=== PATIENT | female | born 2000 | race Two or more races ===

== ENCOUNTER 2025-03-24 20:25 | Emergency (ER) | payer OTHER, SELFPAY ==
[~2025-03-24] VITALS: Ht 160 cm; Wt 82.0 kg
--- NOTE | 2025-03-24 20:36 | ECG ---
[facility] Test Date: 2025-03-24 Test Time: 20:34:32 Pat Name: ARIELLE OREILLY Department: ED Room: Gender: F Gas Dispenser: TRINH : 2000 Requested By: YOGESH ALVAREZ Order Number: [id number] Reading MD: Joshua Jain Measurements Intervals [place] Rate: 82 P: 41 IN: 120 QRS: 64 QRSD: 100 T: 28 QT: 369 QTc: 431 Interpretive Statements Sinus rhythm Abnormal T, consider ischemia, anterior leads Electronically Signed On 03-24-2025 22:37:48 PDT by Joshua Jain Please click the below link to view image of tracing.
[2025-03-24 21:17] LABS: Hematocrit 38.3 % (36.0-46.0); Hemoglobin 13.6 g/dL (12.2-16.2); Mean Corpuscular Hemoglobin 30.3 pg (28.0-32.0); Mean Corpuscular Volume 85.1 fL (80.0-100.0); Nucleated Red Blood Cells % 0.1 %
[2025-03-24 21:24] LABS: Alanine Aminotransferase 20 U/L (7-40); Albumin 4.5 g/dL (3.2-4.8); Alkaline Phosphatase 64 U/L (46-116); Anion Gap 9 (5-15); BUN/Creatinine Ratio 9.2 (10.0-20.0); Bilirubin, Total 0.5 mg/dL (0.2-1.0); Calcium 9.2 mg/dL (8.7-10.4); Carbon Dioxide 27 mmol/L (20-31); Chloride 105 mmol/L (98-107); Glucose 99 mg/dL (74-106); Potassium 3.6 mmol/L (3.5-5.1); Sodium 141 mmol/L (136-145); Total Protein 7.7 g/dL (5.7-8.2)
[2025-03-24 21:29] LABS: Blood Urea Nitrogen 7 mg/dL (9-23)
--- NOTE | 2025-03-24 22:08 | ED.PDOC ---
HPI Comments HPI: 24 year old female presents to the emergency department with a chief complaint of intermittent chest pain onset 3 days. Patient states she has been experiencing intermittent Lt sided chest pain, radiates to LT arm, LT and for the past 3 days. Currently, patient is symptom free with no interventions needed. She has no family cardiac history. Denies chest pain, shortness of breath, numbness/tingling, fever, chills, nausea, vomiting, diarrhea, headache, dizziness. No other symptoms or modifying factors present at this time. Initial Vitals BP: 133/95 HR: 102 RR: 18 O2: 100% Temp: 97.8 F Past Medical History: Denies Past Surgical History: Denies Social History: Denies ETOH, smoking, and drug use. Medications: Denies Allergies: NKDA Denies family history of coronary artery disease. HPI: Poor Historian. REVIEW OF SYSTEMS: CONSTITUTIONAL: Denies acute: fever, diaphoresis, chills, generalized weakness. HEAD: Denies acute: headache, photophobia Eyes: Denies acute: Double vision, vision loss, eye pain, eye discharge. EARS: Denies acute: tinnitus, hearing loss, ear discharge, ear pain, THROAT: Denies acute: sore throat, swelling, difficulty swallowing , pain with swallowing, change in voice. NECK: Denies acute: neck pain, neck swelling, stiff neck. HEART: Denies acute : , palpitations, LUNGS: Denies acute: SOB, wheezing, cough, hemoptysis ABDOMEN: Denies acute: abdominal pain, Nausea, Vomiting, diarrhea, melena , hematemesis, hematochezia SKIN: Denies acute: rash, redness, lesions, itchiness. EXTREMITIES: Denies acute: calf pain, numbness, tingling, weakness, Denies acute: Low back pain. Neuro: Denies acute: focal neurological deficit, motor or sensory focal neurological deficit, tremors, seizure like activity, confusion, dizziness, change in mental status, loss of bowel or bladder function, cauda equina like symptoms. : Denies acute: dysuria, hematuria, flank pain, increase in urinary frequency. PSYCH: Denies acute: hallucination, suicidal ideation, homicidal ideation. FEMALE: Denies acute: abnormal vaginal bleeding, foul odor, unusual discharge. PHYSICAL EXAM: General: ----no----acute distress, awake and alert. Head: normocephalic, atraumatic. Neck: supple, trachea is midline, no swelling. Throat: Normal phonation. Eyes:, no erythema, no purulent discharge, no proptosis, no icterus. Heart: regular rate, regular rhythm, no significant murmur appreciated. Lungs: no apparent respiratory distress, Able to speak in full sentences. No wheezing, no rhonchi, no crackles. No stridors Clear to auscultation bilaterally. Abdomen: non tender to palpation, non distended, soft, no guarding, no rebound, + bowel sounds. Neuro: Awake, Alert, oriented to name, self, situation, follows commands GCS=15. Speech is normal. Skin: no petechia, no purpura, no cyanosis, non-pale, not jaundice. Lower extremities: --no - Pitting edema no deformity, no focal swelling, no calf TTP. Makes eye contact. moves all four extremities. Face: no apparent facial droop. Ambulating in the ED independently. ED COURSE: DISCLAIMER: This medical document was created using an electronic medical record system with voice recognition software and computerized dictation system. Although this document has been carefully reviewed, there might still be some phonetic and typographical errors. Occasional wrong-word or "sound-alike" substitutions may have occurred due to the inherent limitations of voice recognition software. These areas are purely typographical due to imperfections of the software programs and do not reflect any compromise in the patient's medical care. Please read the chart carefully and recognize, using context, where these substitutions have occurred. Chief Complaint: Chest Pain Time Seen by MD: 22:00 Reviewed Notes: Medications, Allergies Allergies: Coded Allergies: NO KNOWN ALLERGIES (Unverified , 03/24/25) Information Source: Patient Mode of Arrival: Ambulatory Severity: Moderate Timing: Days Duration: Intermittent Prehospital treatment: None Location: Chest (L), Substernal Radiation: Hand (L) Quality: Pressure Onset: At Rest Cardiac Risk Factors: None PE Risk Factors: None History of: None Modifying Factors: Nothing Associated Signs and Symptoms: Other Heart Score Heart Score: Heart Score Response (Comments) Value History Slightly Suspicious 0 EKG Normal 0 Age <45 0 Risk Factors No known risk factors 0 Troponin Normal limit 0 Total 0 Past Medical History PAST MEDICAL HISTORY: Denies Surgical History: Denies all surgeries CAPITAL PROJECT ENGINEER History: No Pertinent CAPITAL PROJECT ENGINEER History Family History Family History: Reviewed,noncontributory to illness, No family hx of Cancer, No family hx of DM, No family hx of Heart faizan, No family hx of HTN, No family hx ofKidney faizan, No family hx of Liver faizan, No family hx of Lung faizan, No family hx of Stroke Social History Smoker: Non-Smoker Alcohol: Denies ETOH Use Drugs: Denies Drug Use Lives In: Home EKG EKG : Pulse Rate (adult): 82 Cardiac Rhythm: NSR Was a procedure done? Was a procedure done?: No X-Ray, Labs, Meds, VS Vital Signs Date Time Temp Pulse Resp B/P (MAP) Pulse Ox O2 Delivery O2 Flow Rate FiO2 03/24/25 23:38 68 03/24/25 22:30 98.4 80 16 106/65 (79) 98 98.4 03/24/25 22:08 82 03/24/25 21:29 77 03/24/25 20:34 82 03/24/25 20:27 97.8 102 18 133/95 100 97.8 Lab Test 03/24/25 21:35 03/24/25 20:40 Range/Units Troponin I High Sensitivity < 3 L < 3 L </=34 ng/L White Blood Count 9.7 4.4-10.8 10^3/uL Red Blood Count 4.50 4.0-5.20 10^6/uL Hemoglobin 13.6 12.2-16.2 g/dL Hematocrit 38.3 36.0-46.0 % Mean Corpuscular Volume 85.1 80.0-100.0 fL Mean Corpuscular Hemoglobin 30.3 28.0-32.0 pg Mean Corpuscular Hemoglobin Concent 35.6 32.0-36.0 g/dL Red Cell Distribution Width 12.9 11.8-14.3 % Platelet Count 268 140-450 10^3/uL Mean Platelet Volume 7.7 6.9-10.8 fL Neutrophils (%) (Auto) 61.9 37.0-80.0 % Lymphocytes (%) (Auto) 29.7 10.0-50.0 % Monocytes (%) (Auto) 7.4 0.0-12.0 % Eosinophils (%) (Auto) 0.7 0.0-7.0 % Basophils (%) (Auto) 0.3 0.0-2.0 % Neutrophils # (Auto) 6.0 1.6-8.6 10 ^3/uL Lymphocytes # (Auto) 2.9 0.4-5.4 10 ^3/uL Monocytes # (Auto) 0.7 0-1.3 10 ^3/uL Eosinophils # (Auto) 0.1 0-0.8 10 ^3/uL Basophils # (Auto) 0 0-0.2 10 ^3/uL Nucleated Red Blood Cells 0.1 % Sodium Level 141 136-145 mmol/L Potassium Level 3.6 3.5-5.1 mmol/L Chloride Level 105 98-107 mmol/L Carbon Dioxide Level 27 20-31 mmol/L Anion Gap 9 5-15 Blood Urea Nitrogen 7 L 9-23 mg/dL Creatinine 0.76 0.550-1.02 mg/dL Glomerular Filtration Rate Calc 114 >90 mL/min BUN/Creatinine Ratio 9.2 L 10.0-20.0 Serum Glucose 99 74-106 mg/dL Calcium Level 9.2 8.7-10.4 mg/dL Total Bilirubin 0.5 0.2-1.0 mg/dL Aspartate Amino Transferase (AST) 18 13-40 U/L Alanine Aminotransferase (ALT) 20 7-40 U/L Alkaline Phosphatase 64 46-116 U/L Total Protein 7.7 5.7-8.2 g/dL Albumin 4.5 3.2-4.8 g/dL [place] [address] Ph: [phone] DIAGNOSTIC IMAGING Diagnostic Imaging Report : [id number] Signed PATIENT: CARIE OREILLYCT: [id number] UNIT: [id number] : 2000 LOC: ER ROOM / BED: / AGE / SEX: 24 / F ADM STATUS: REG ER SERVICE 37 ORDERING PHYSICIAN: YOGESH ALVAREZ DO PROCEDURE(s): CXRP - CHEST PORTABLE REASON: cp ORDER NUMBER(s): [id number], ACCESSION NUMBER(s): [id number] CHEST RADIOGRAPH Indication: cp Technique: Single frontal view of the chest was obtained Comparison: None FINDINGS: Lines and Tubes: None Lungs: No focal consolidation. Pleura: No effusion. No pneumothorax. Cardiomediastinal contours: Unremarkable Bones: No acute osseous abnormality. IMPRESSION: 1. No acute cardiopulmonary disease. ATED BY: JOEL VARELA Jr., DO DICTATED DATE/TIME: 03/24/252254 SIGNED BY: JOEL VARELA Jr., SIGNED DATE/TIME: 03/24/252254 CC: Time of 1ST Reevaluation: 22:30 Reevaluation 1ST: Unchanged Patient Education/Counseling: Diagnosis, Treatment Family Education/Counseling: No Family Present Departure 1 Departure Time of Disposition: 23:07 Impression: Primary Impression: Chest pain Additional Impression: T wave inversion in EKG Disposition: 01 HOME / SELF CARE / HOMELESS Admit to: Tele Condition: Stable Additional Instructions: Additional instructions: You MUST follow-up with your primary care/family doctor in 1 to 2 days. If you are unable to see your primary care/family doctor, please return to our emergency room for re-assessment and re-evaluation in 1 to 2 days. Return to the emergency room here in our facility or to the nearest ER [facility] if your symptoms change or worsen. CONSULTATIONS: you MUST Follow-up for consultation as soon as possible with: --cardiology in 1-2 days. Please call for appointment. You MUST call the consultants office yourself to make an appointment. You may need to arrange that through your insurance and/or your primary/family doctor. If you are unable to see the qm consultant in 1 to 2 days, you must return to our emergency room (or any other ER of your choice) for re-assessment and re- evaluation. Adequate fluid hydration. You were given a copy of your EKG to show your doctor. Below is a copy of your radiological report for follow up: [address] [address] Ph: [phone] DIAGNOSTIC IMAGING Diagnostic Imaging Report : [id number] Signed PATIENT: ARIELLE OREILLY ACCT: [id number] UNIT: [id number] : 2000 LOC: ER ROOM / BED: / AGE / SEX: 24 / F ADM STATUS: REG ER SERVICE 37 ORDERING PHYSICIAN: YOGESH ALVAREZ DO PROCEDURE(s): CXRP - CHEST PORTABLE REASON: cp ORDER NUMBER(s): [id number], ACCESSION NUMBER(s): [id number] CHEST RADIOGRAPH Indication: cp Technique: Single frontal view of the chest was obtained Comparison: None FINDINGS: Lines and Tubes: None Lungs: No focal consolidation. Pleura: No effusion. No pneumothorax. Cardiomediastinal contours: Unremarkable Bones: No acute osseous abnormality. IMPRESSION: 1. No acute cardiopulmonary disease. ATED BY: JOEL VARELA Jr., DO DICTATED DATE/TIME: 03/24/252254 SIGNED BY: JOEL VARELA Jr., DO SIGNED DATE/TIME: 03/24/252254 CC: Discharged With: Self Critical Care Note Critical Care Time?: No I personally scribed for YOGESH ALVAREZ DO ([email or web address]) on 03/24/25 at 22:08. Electronically submitted by Alyx Goodwin ([email or web address]). I personally scribed for YOGESH ALVAREZ DO ([email or web address]) on 03/24/25 at 23:05. Electronically submitted by Alyx Goodwin ([email or web address]). I personally scribed for YOGESH ALVAREZ DO ([email or web address]) on 03/24/25 at 23:50. Electronically submitted by Alyx Goodwin ([email or web address]). YOGESH ALVAREZ DO Mar 24, 2025 22:08
--- NOTE | 2025-03-24 22:57 | DVH ---
CHEST RADIOGRAPH Indication: cp Technique: Single frontal view of the chest was obtained Comparison: None FINDINGS: Lines and Tubes: None Lungs: No focal consolidation. Pleura: No effusion. No pneumothorax. Cardiomediastinal contours: Unremarkable Bones: No acute osseous abnormality. IMPRESSION: 1. No acute cardiopulmonary disease.
--- NOTE | 2025-03-25 00:28 | ECG ---
[facility] Test Date: 2025-03-24 Test Time: 21:29:31 Pat Name: ARIELLE OREILLY Department: ED Room: Gender: F Farm General Manager: TRINH : 2000 Requested By: YOGESH ALVAREZ Order Number: [id number] Reading MD: Measurements Intervals [place] Rate: 77 P: 19 SD: 119 QRS: 70 QRSD: 95 T: 33 QT: 377 QTc: 427 Interpretive Statements Sinus rhythm Borderline short SD interval Low voltage, precordial leads Nonspecific T abnormalities, anterior leads Please click the below link to view image of tracing.
--- NOTE | 2025-03-25 00:29 | ECG ---
[facility] Test Date: 2025-03-24 Test Time: 23:38:56 Pat Name: ARIELLE OREILLY Department: ED Room: Gender: F Debt Collection Specialist: FRANCI : 2000 Requested By: YOGESH ALVAREZ Order Number: [id number] Reading MD: Measurements Intervals [place] Rate: 68 P: 19 ND: 123 QRS: 67 QRSD: 101 T: 30 QT: 397 QTc: 423 Interpretive Statements Sinus rhythm Low voltage, precordial leads Baseline wander in lead(s) I,aVR,V1 Please click the below link to view image of tracing.
[2025-03-25 01:29] VITALS: BP 115/83; TEMP 98.5
[2025-03-25 01:34] VITALS: PULSE 70; RESP 16; O2SAT 100
== END 2025-03-25 01:38 | disposition home or self-care (01) ==
LOC: ER 20:25
DX: R07.89 Other chest pain (principal); R94.31 Abnormal electrocardiogram [ECG] [EKG]
CPT/HCPCS: 36415; 71045; 80053; 84484; 85025; 93005